=== PATIENT | male | born 1940 | race Caucasian/White ===

== ENCOUNTER 2021-05-22 19:43 | Emergency (ER) | payer MEDICARE, OTHER, SELFPAY ==
[2021-05-22 19:43] VITALS: BP 128/61; PULSE 65; RESP 16; TEMP 36.4; O2SAT 100; BMI 23.0
--- NOTE | 2021-05-22 19:58 | RAD_ITS ---
STUDY: XR Knee 3 Views 05/22/2021 9:03 PM REASON FOR EXAM: Male, 80 years old. PAIN TECHNIQUE: XR Knee 3 Views COMPARISON: None. FINDINGS: Normal visualized distal femur. Normal visualized proximal tibia and fibula. Normal proximal tibiofibular articulation. There is severe degenerative arthrosis of the medial femorotibial compartment with severe joint space narrowing. There is severe degenerative arthrosis of the lateral femorotibial compartment with severe joint space narrowing. There is severe degenerative arthrosis of the patellofemoral articulation. There is a soft tissue prominence in the suprapatellar region suggesting a small volume joint effusion. The soft tissue structures are unremarkable. RAD/Knee 3 Views IMPRESSION: Degenerative arthrosis. There is a soft tissue prominence in the suprapatellar region suggesting a small volume joint effusion. Electronically Signed: Conner Woodard MD at 21:04 EST ,
--- NOTE | 2021-05-22 19:58 | RAD_ITS ---
STUDY: XR Shoulder Min 2 Views REASON FOR EXAM: Male, 80 years old. PAIN TECHNIQUE: XR Shoulder Min 2 Views COMPARISON: None. FINDINGS: Normal glenohumeral articulation. There is degenerative arthrosis of the acromioclavicular joint without inferior osseous spur formation. Normal acromion. Normal humeral head and visualized proximal humerus. The soft tissue structures are unremarkable. Normal visualized pulmonary apex. RAD/Shoulder min 2 Views IMPRESSION: There are no acute findings of the shoulder. Electronically Signed: Conner Woodard MD at 21:04 EST Reading Location ID and State: [facility] / [place] , Service support ,
--- NOTE | 2021-05-22 20:12 | RAD_ITS ---
STUDY: XR Hand Min 3 Views REASON FOR EXAM: Male, 80 years old. PAIN TECHNIQUE: XR Hand Min 3 Views COMPARISON: None. FINDINGS: Normal radiocarpal articulation. Normal distal radioulnar joint. Normal visualized carpal bones. Normal carpal articulations Normal carpometacarpal articulation of the thumb. Normal second through fifth carpometacarpal joints. Normal metacarpi. There is degenerative arthrosis of the metacarpophalangeal (MCP) joints. There is degenerative arthrosis of the interphalangeal joint of the thumb with articular joint space narrowing. Normal proximal and distal phalanges of the thumb. There is degenerative arthrosis of the metacarpophalangeal (MCP) joints. There is diffuse articular joint space narrowing of the proximal and distal interphalangeal joints of the second through fifth fingers, but without erosive changes or periarticular soft tissue swelling. Normal phalanges of the second through fifth fingers. The soft tissue structures are unremarkable. RAD/Hand Min 3 Views IMPRESSION: Degenerative joint disease of the hand and wrist, as described above. Electronically Signed: Conner Woodard MD at 21:06 EST Reading Location ID and State: [facility] / [place] , Service support ,
--- NOTE | 2021-05-22 20:28 | CT_ITS ---
We are attempting to reach an attending provider to discuss findings. An addendum with communication details will be sent when the communication is complete. STUDY: CT BRAIN WITHOUT CONTRAST REASON FOR EXAM: Male, 80 years old. HEADACHE fall +loc TECHNIQUE: Transaxial CT imaging of the brain was performed without administration of intravenous contrast material. Individualized dose optimization techniques were used for this CT. COMPARISON: None FINDINGS: Normal calvarium. There is no underlying fracture. Soft tissue swelling of the left periorbital region. Normal size ventricles and extra-axial spaces for the patient''s age. Normal white matter tracts of the cerebral hemispheres. Normal basal ganglia and thalami. Normal brainstem. Normal cerebellum. There is frontal lobe subarachnoid and/or petechial hemorrhage. There are no findings of an acute ischemic infarction. There is mild maxillary sinus disease. Sphenoid sinus disease. There is mild ethmoid sinus disease. ASPECTS 10 CT/Brain/Head without Contrast IMPRESSION: There is frontal lobe subarachnoid and/or petechial hemorrhage. There is no underlying fracture. Soft tissue swelling of the left periorbital region. Sinus disease. Electronically Signed: Conner Woodard MD at 21:06 EST ,
[2021-05-22 21:24] VITALS: RESP 18
[2021-05-22] MEDS: Diphth,Pertuss(Acell),Tet Vac 0.5 ML Vial IM (22:00)
[2021-05-22 22:05] VITALS: RESP 20
--- NOTE | 2021-05-22 22:17 | EDS_ITS ---
HPI HPI - Fall History of Present Illness Chief Complaint: Fall Informant: patient and family Occured/Mechanism Occurred: Today Narrative: Unwitnessed fall Pain/Injury Location: Left shoulder, left hand, left knee, left frontal forehead Pain Location: head, face and upper extremity Quality of Pain: Aching Worsened by: Movement Relieved by: Nothing Associated Symptoms Associated Symptoms: Positive for Loss of consciousness (Unknown) and Amnesia; Negative for Parasthesias and Inability to ambulate Length of loss of consciousness: Unknown Narrative Narrative: Patient presents after an unwitnessed fall that occurred today. Family came home and saw that the patient was sitting at the kitchen table with a laceration to his left eyebrow and swelling in his left periorbital area. Patient does not remember any of the events around the fall. Patient complains of pain over the left side of his head, left shoulder, left hand, and left knee. Family does not know if there was a loss of consciousness. Family states patient probably fell outside and was able to come inside into the house on his own. [facility] Medical History (Updated 05/22/21 @ 22:[address] Eleazar Pierre DO) Type 2 diabetes mellitus Allergy/AdvReac Type Severity Reaction Status Date / Time No Known Allergies Allergy Verified 05/22/21 19:46 Surgical History (Updated 05/22/21 @ 22:[address] Eleazar Pierre DO) Hx of left knee surgery Social History Smoking Status: Never smoker ROS ROS ED Constitutional Constitutional ED: Denies chills or fever(s) Eyes Eyes: Denies blurry vision or change in vision ENT ENT ED: Denies rhinorrhea or sore throat Cardiovascular Cardiovascular: Denies chest pain or palpitations Respiratory/Chest Respiratory/Chest: Denies cough or dyspnea Gastrointestinal Gastrointestinal: Denies nausea or vomiting Genitourinary Genitourinary ED: Denies dysuria or hematuria Musculoskeletal Musculoskeletal: Denies back pain or neck pain Integumentary Denies abscess or rash Neurologic Neurologic: Denies headache(s) or weakness Allergic/Immunologic Allergic/Immunologic ED: Denies mouth swelling or urticaria EXAM Physical Exam Const Vital Signs: 05/22/21 19:43 05/22/21 20:48 05/22/21 21:24 Temperature 97.6 F L Temperature Source Temporal Pulse Rate 65 Respiratory Rate 16 18 Respiratory Effort Normal Respiratory Depth Normal Respiratory Pattern Normal Blood Pressure 128/61 H Blood Pressure Mean 83 Pulse Ox 100 Oxygen Delivery Method Room Air 05/22/21 22:05 Temperature Temperature Source Pulse Rate Respiratory Rate 20 H Respiratory Effort Respiratory Depth Respiratory Pattern Blood Pressure Blood Pressure Mean Pulse Ox Oxygen Delivery Method Positive well nourished and well developed General Appearance ED: well developed and NAD HEENT HEENT Narrative: There is edema and ecchymosis over the left upper eyelid and periorbital area. There is no bony crepitance or step-off. There is a 2.5 cm V-shaped laceration over the lateral aspect of the left eyebrow. There is moderate gapping of the wound margins. There is no foreign body. There is no active bleeding noted. Eyes PERRL and EOMs intact bilaterally Eyes Narrative: There is a subconjunctiva hemorrhage on the left lateral conjunctiva. Neck full ROM General: Negative for tenderness Chest Wall inspection of chest normal and palpation of chest normal Resp normal respiratory effort and clear to auscultation bilaterally Cardio regular rate and regular rhythm GI non-tender Palpation: soft Back/Spine Cervical Spine: Negative for cervical spine tenderness Thoracic Spine / Upper Back: Negative for thoracic spinal tenderness Extremity Extremity Narrative: There is tenderness to palpation of the left shoulder. There is no obvious deformity noted. There is no bony crepitance or step-off. Range of motion was limited in all motions of the left shoulder secondary to pain. There is a superficial abrasion over the left hand. There is no active bleeding. There is good range of motion of the left hand. There is minimal tenderness. There is no bony crepitance or step-off. There is no deformity. There is also tenderness over the left knee. There is a superficial abrasion over the anterior aspect of the left knee. There is no bleeding. Range of motion was slightly limited in all motions of the left knee secondary to pain. Pedal pulses are equal bilaterally. Sensation was intact to light touch bilaterally in upper and lower extremities. Strength is 5/5 bilaterally in the upper and lower extremities. Neuro oriented x3, CN's II-XII intact bilaterally, moves all extremities, no focal motor deficits and no sensory deficits noted Sensorium / Orientation: alert Psych mental status grossly normal MDM MDM MDM Narrative Medical decision making narrative: X-rays of the left shoulder were obtained. There are 4 views. On my interpretation, there is no acute fracture. There is no dislocation. There are some mild degenerative changes. Radiologist also interpreted the x-rays and agrees. X-rays of the left hand were obtained. There are 3 views. On my interpretation, there is no acute fracture. There is no dislocation. There is no soft tissue swelling. There are some degenerative changes noted. Radiologist also interpreted the x-rays and agrees. X-rays of the left knee were obtained. There are 3 views. On my interpretation, there is no acute fracture. There is no dislocation. There is some mild soft tissue swelling and a small joint effusion. There are some degenerative changes noted. Radiologist also interpreted the x-rays and agrees. CT scan of the brain was obtained. There is frontal lobe subarachnoid and/or petechial hemorrhage. There is no midline shift. There is no fracture noted. This was interpreted by the radiologist and reviewed by myself. The wound was cleaned and irrigated with copious amounts of normal saline. The wound was anesthetized with 1% plain lidocaine locally. The wound was closed with 3 simple interrupted #5-0 nylon sutures under sterile technique. Patient tolerated the procedure well. Bacitracin dressing was applied. CT scan of the cervical spine was ordered and is pending. Case was discussed with Dr. Gil at [facility]. He accepted the transfer the patient to the emergency department there. Patient became nauseated after CT scan of the cervical spine. Patient was given a dose of Zofran ODT here. Patient and family understood and were agreeable with the plan. All questions were answered. Radiography Diagnostic Testing: Clinical Impression(s) from Imaging Studies Knee X-Ray 05/22/21 19:58 IMPRESSION: Degenerative arthrosis. There is a soft tissue prominence in the suprapatellar region suggesting a small volume joint effusion. Electronically Signed: Conner Woodard MD at 21:04 EST , Shoulder X-Ray 05/22/21 19:58 IMPRESSION: There are no acute findings of the shoulder. Electronically Signed: Conner Woodard MD at 21:04 EST , Hand X-Ray 05/22/21 20:12 IMPRESSION: Degenerative joint disease of the hand and wrist, as described above. Electronically Signed: Conner Woodard MD at 21:06 EST , Brain CT 05/22/21 20:28 IMPRESSION: There is frontal lobe subarachnoid and/or petechial hemorrhage. There is no underlying fracture. Soft tissue swelling of the left periorbital region. Sinus disease. Electronically Signed: Conner Woodard MD at 21:06 EST , ADDENDUM: 05/22/212121 IMPRESSION: There is frontal lobe subarachnoid and/or petechial hemorrhage. There is no underlying fracture. Soft tissue swelling of the left periorbital region. Sinus disease. N.B. : The above Results were Read Back by Conner Woodard MD to Dr. Eleazar Pierre, DO, DO, and understanding confirmed on 05/22/2021 21:15:48 (ET). Electronically Signed: Conner Woodard MD at 21:06 EST , Discharge Plan Triage Chief Complaint: Fall ED Provider: Eleazar iPerre Dx/Rx/DC Orders Clinical Impression: Subarachnoid hemorrhage, Laceration of left eyebrow, Contusion of left shoulder, Contusion of left knee Primary Care Provider: Care Physician,No Primary Referrals: Care Physician,No Primary [Primary Care Provider] - Disposition Disposition: Acute Care Hospital Discharge Location: [facility]
--- NOTE | 2021-05-22 22:17 | CT_ITS ---
INDICATION: Injury/Pain EXAMINATION: CT CERVICAL SPINE - CT Spine Cervical W/O Contrast Injection TECHNIQUE: Helically acquired images were obtained of the cervical spine. 2D reformatted images were reviewed. A radiation dose optimization technique was used for this scan. IV Contrast dosage and agent: None. COMPARISON: None. FINDINGS: VERTEBRAE: No fracture or traumatic subluxation. No discrete lytic or blastic abnormality. Mild straightening of the normal cervical lordotic curvature. Normal craniocervical junction and cervicothoracic junction. DISCS and SPINAL CANAL: Significant multilevel degenerative facet and uncovertebral joint arthropathy with severe neural foraminal narrowing at C3-4 and C4-5 levels, on the right. 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 This does appear to result in mild central canal narrowing. NECK SOFT TISSUES: No prevertebral soft tissue swelling. There is no cervical adenopathy. LUNG APICES: Clear. CT/Spine Cervical without Contras IMPRESSION: No fracture or traumatic malalignment. Multilevel degenerative endplate, uncovertebral joint and facet joint arthropathy with severe neural foraminal narrowing C3-4 and C4-5 levels on the right. The posterior longitudinal ligament calcifications. This appears to result in mild central spinal canal narrowing. Electronically Signed: Geoff Antonio DO at 23:55 EST ,
[2021-05-22] MEDS: Lidocaine 1% (20 ml mdv) 20 ML Vial INFILT (22:45)
[2021-05-22] MEDS: Ondansetron ODT 4 MG Tablet PO (22:55)
--- NOTE | 2021-05-22 23:03 | ED.RN ---
Report given to Theresa at [facility]
[2021-05-22 23:05] VITALS: RESP 20
== END 2021-05-22 23:07 | disposition short-term general hospital (02) ==
PROVIDERS: Emergency Provider Emergency Medicine; Visit Provider Emergency Medicine
DX: S06.6X9A Traumatic subarachnoid hemorrhage with loss of consciousness of unspecified duration, initial encounter (principal); E11.9 Type 2 diabetes mellitus without complications; S01.112A Laceration without foreign body of left eyelid and periocular area, initial encounter; S80.02XA Contusion of left knee, initial encounter; S40.012A Contusion of left shoulder, initial encounter; W19.XXXA Unspecified fall, initial encounter; H11.32 Conjunctival hemorrhage, left eye; S80.212A Abrasion, left knee, initial encounter; Y93.9 Activity, unspecified; Y92.009 Unspecified place in unspecified non-institutional (private) residence as the place of occurrence of the external cause; Z23 Encounter for immunization
CPT/HCPCS: 12011; 70450; 72125; 73030; 73130; 73562; 90715; 99285; A4216

== ENCOUNTER → 2021-06-01 | Outpatient (REF) | payer SELFPAY ==
[2021-06-01 09:08] LABS: Absolute Neutrophil Count 3.4 X10^3/uL (2.0-7.7); Basophil# 0.05 X10^3/uL; Basophil% 0.8 % (0-1); Eosinophil# 0.21 X10^3/uL; Eosinophils% 3.3 % (0-5); Hematocrit 37.5 % (40-54); Hemoglobin 12.5 g/dL (13.0-16.5); Lymphocyte % 33.4 % (19-41); Mean Corp Hgb Conc 33.3 g/dL (32-36); Mean Corpuscular Hgb 31.6 pg (27.0-32.0); Mean Corpuscular Volume 94.7 fL (80-94); Mean Platelet Vol. 9.1 fl (6.2-12.0); Monocyte# 0.54 X10^3/uL; Monocyte% 8.6 % (0-10); NRBC Flagged by Analyzer 0 % (0-5); Neutrophil # 3.35 X10^3/uL (2.7-7.7); Neutrophil % 53.4 % (47-70); Platelet Count 282 K/mm3 (150-450); RBC Distribution Width CV 13.6 % (11.6-14.6); RBC Distribution Width SD 47.4 fl (35.1-43.9); Red Blood Count 3.96 M/mm3 (4.6-6.2); White Blood Count 6.3 K/mm3 (4.4-11.0)
[2021-06-01 09:47] LABS: Vitamin B12 638 pg/mL (211-911); Vitamin D,25 Hydroxy 42.8 ng/mL
[2021-06-01 09:53] LABS: Anion Gap 8 (5-15); BUN 14 mg/dL (7-18); BUN/Creat Ratio 14.4 RATIO (10-20); Calcium,Total 8.6 mg/dL (8.5-10.1); Chloride 102 mmol/L (98-107); Creatinine, Serum 0.97 mg/dL (0.70-1.30); EST Glomerular Filtration Rate 79 mL/min (>60); Est Glom Filt Rate - Afr Amer 95 mL/min (>60); Glucose 110 mg/dL (74-106); Magnesium 2.5 mg/dL (1.6-2.6); Potassium 4.2 mmol/L (3.5-5.1); Sodium Level 136 mmol/L (136-145); Thyroid Stim Hormone (TSH) 0.71 uIU/mL (0.358-3.74)
[2021-06-01 10:53] LABS: Hemoglobin A1c 5.7 % (3.8-5.6)
== END | disposition home or self-care (01) ==
LOC: OLS.SW1020 04:00
PROVIDERS: Referring Provider Internal Medicine; Visit Provider Internal Medicine
DX: E11.9 Type 2 diabetes mellitus without complications (principal)
CPT/HCPCS: 36415; 80048; 82306; 82607; 83036; 83735; 84443; 85025

== ENCOUNTER → 2021-06-08 | Outpatient (REF) | payer SELFPAY ==
[2021-06-08 08:00] LABS: Absolute Lymphocyte Count 1.76 X10^3/uL (0.83-4.51); Absolute Neutrophil Count 4.9 X10^3/uL (2.0-7.7); Basophil# 0.06 X10^3/uL; Basophil% 0.8 % (0-1); Eosinophil# 0.15 X10^3/uL; Hematocrit 37.2 % (40-54); Hemoglobin 12.9 g/dL (13.0-16.5); Lymphocyte # 1.76 X10^3/ul (0.83-4.51); Lymphocyte % 23.6 % (19-41); Mean Corp Hgb Conc 34.7 g/dL (32-36); Mean Corpuscular Hgb 31.6 pg (27.0-32.0); Mean Corpuscular Volume 91.2 fL (80-94); Mean Platelet Vol. 8.9 fl (6.2-12.0); Monocyte# 0.56 X10^3/uL; Monocyte% 7.5 % (0-10); NRBC Flagged by Analyzer 0 % (0-5); Neutrophil % 65.7 % (47-70); Platelet Count 305 K/mm3 (150-450); RBC Distribution Width CV 13.5 % (11.6-14.6); RBC Distribution Width SD 45.6 fl (35.1-43.9); Red Blood Count 4.08 M/mm3 (4.6-6.2); White Blood Count 7.5 K/mm3 (4.4-11.0)
[2021-06-08 08:12] LABS: Anion Gap 8 (5-15); BUN 13 mg/dL (7-18); BUN/Creat Ratio 16.2 RATIO (10-20); Calcium,Total 8.8 mg/dL (8.5-10.1); Chloride 97 mmol/L (98-107); EST Glomerular Filtration Rate 99 mL/min (>60); Est Glom Filt Rate - Afr Amer 119 mL/min (>60); Glucose 123 mg/dL (74-106); Magnesium 2.3 mg/dL (1.6-2.6); Potassium 3.9 mmol/L (3.5-5.1); Sodium Level 132 mmol/L (136-145)
== END | disposition home or self-care (01) ==
LOC: OLS.SW1020 04:00
PROVIDERS: Referring Provider Internal Medicine; Visit Provider Internal Medicine
DX: S02.82XD Fracture of other specified skull and facial bones, left side, subsequent encounter for fracture with routine healing (principal)
CPT/HCPCS: 36415; 80048; 83735; 85025

== ENCOUNTER 2022-01-17 17:17 | Inpatient (IN) | payer MEDICARE, OTHER, SELFPAY ==
--- NOTE | 2022-01-17 17:21 | CT_ITS ---
We are attempting to reach an attending provider to discuss findings. An addendum with communication details will be sent when the communication is complete. STUDY: CTA HEAD AND NECK WITH CONTRAST REASON FOR EXAM: Male, 81 years old. Neuro deficit. Acute stroke suspected. RADIATION DOSAGE (If Supplied By Facility): CTDIvol = ( 44.99 ) mGy, DLP = ( 1625.96 ) mGycm TECHNIQUE: CT angiography was performed with a multi-detector CT scanner. Data acquisition was obtained from the skull base through the vertex following intravenous administration of IV 100mL Isovue-370. MIP images were reconstructed from the axial data set. Post-processing of the angiographic images was performed, with multiplanar reformation and 3D reconstruction. Individualized dose optimization techniques were used for this CT. COMPARISON: CT, 01/17/2022. FINDINGS: Normal bilateral petrous carotid arteries. There is calcified plaque formation of the right cavernous carotid artery, without a cross-sectional luminal stenosis. There is calcified plaque formation of the left cavernous carotid artery, without a cross-sectional luminal stenosis. Normal right A1 segments of the anterior cerebral artery. Normal left A1 segments of the anterior cerebral artery. There is non-visualization of the anterior communicating artery (ACOM). Normal bilateral A2 segments of the anterior cerebral arteries. Normal M1 and M2 segments of the right middle cerebral artery with a normal M1 bifurcation. Normal M1 of the left cerebral artery. At the expected position of the bifurcation there is occlusion of the vessel. There is evidence of contrast seen in M2 segments suggesting a marked stenosis. Normal right posterior communicating artery (PCOM). Normal left posterior communicating artery (PCOM). Normal bilateral vertebral arteries. Normal basilar artery with a normal basilar bifurcation. The visualized bilateral superior cerebellar (SCA) arteries are normal. Normal bilateral P1, P2 and visualized P3 segments of the posterior cerebral arteries. There is no demonstrated aneurysm of the cahto of [place]. There is no demonstrated abnormality of the visualized brain. AORTIC ARCH: Minimal atherosclerotic changes of the aortic arch without dissection or aneurysm. Normal origins of the brachiocephalic, left common carotid, and left subclavian arteries. RIGHT CAROTID ARTERIES: Normal right common carotid artery (CCA). Minimal atherosclerotic changes at the carotid bifurcation without stenosis. Normal origin of the right internal carotid (ICA) artery without a hemodynamically significant stenosis. Normal visualized cervical portion of the right internal carotid artery. Normal origin of the right external carotid artery (ECA). LEFT CAROTID ARTERIES: Normal left common carotid artery (CCA). Normal left common carotid bulb. Normal origin of the left internal carotid (ICA) artery without a hemodynamically significant stenosis. Normal visualized cervical portion of the left internal carotid artery. Normal origin of the left external carotid artery (ECA). VERTEBRAL ARTERIES: Normal bilateral vertebral arteries. CT/STROKE CTA Head AND Neck W/Con IMPRESSION: 1. 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 Contrast is seen in M2 branches although these appear less evident on the right.. This may be the cause of the asymmetric low attenuation in the region of the left insular cortex noted on the prior head CT. 2. Otherwise normal intracranial vasculature. 3. Minimal atherosclerotic changes at the left carotid bifurcation without stenosis. 4. Normal right carotid artery and bilateral vertebral arteries. Electronically Signed: Alejo Salmeron DO at 17:51 EDT ,
--- NOTE | 2022-01-17 17:21 | EKG12_ITS ---
Test Reason : stroke Blood Pressure : / mmHG Vent. Rate : 096 BPM Atrial Rate : 096 BPM P-R Int : 152 ms QRS Dur : 096 ms QT Int : 376 ms P-R-T Axes : 003 004 038 degrees QTc Int : 475 ms Poor data quality, interpretation may be adversely affected Normal sinus rhythm Normal ECG Confirmed by JAMES MON, PHILIP ([id number]), technical writer and editor LAVELLE KELLER ([id number]) on 01/18/2022 9:36:32 AM Referred By: Mu Confirmed By:PHILIP RAMIREZ MD
--- NOTE | 2022-01-17 17:21 | CT_ITS ---
EXAMINATION : Head CT w/out contrast HISTORY : Neuro deficit, acute, stroke suspected COMPARISON : None. TECHNIQUE : Multiple contiguous axial images were obtained from the skull base to the vertex without intravenous contrast. A radiation dose optimization technique was used for this scan. FINDINGS : There is no evidence for acute intracranial hemorrhage, mass effect, or midline shift. There is no extra-axial fluid collection. There are periventricular white matter changes consistent with chronic microvascular ischemic disease. There is sulcal widening and ventricular enlargement consistent with cerebral atrophy. Ill-defined hypodense area involving the anterior aspect of the right frontal lobe. 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 The skull base and calvarium are unremarkable. The orbits are unremarkable. The paranasal sinuses are clear. The mastoid air cells are well-aerated. The soft tissues are unremarkable. 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 No hemorrhage. 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 Chronic involutional and ischemic changes of the brain. N.B. : The above Results were Read Back by Dave Jimenez MD to Suha Dobbins MD, and understanding confirmed on 01/17/2022 17:32:16 (ET). Electronically Signed: Dave Jimenez MD at 17:28 EDT ,
[2022-01-17 17:24] VITALS: BP 158/87; PULSE 94; RESP 20; TEMP 36.6; O2SAT 97
[2022-01-17 17:37] LABS: Absolute Lymphocyte Count 1.09 X10^3/uL (0.83-4.51); Absolute Neutrophil Count 9.8 X10^3/uL (2.0-7.7); Basophil# 0.05 X10^3/uL; Basophil% 0.4 % (0-1); Eosinophil# 0.17 X10^3/uL; Eosinophils% 1.4 % (0-5); Hematocrit 43.7 % (40-54); Hemoglobin 14.3 g/dL (13.0-16.5); Lymphocyte # 1.09 X10^3/ul (0.83-4.51); Lymphocyte % 9.2 % (19-41); Mean Corp Hgb Conc 32.7 g/dL (32-36); Mean Corpuscular Hgb 29.9 pg (27.0-32.0); Mean Corpuscular Volume 91.4 fL (80-94); Mean Platelet Vol. 8.7 fl (6.2-12.0); Monocyte% 5.9 % (0-10); NRBC Flagged by Analyzer 0 % (0-5); Neutrophil # 9.76 X10^3/uL (2.7-7.7); Neutrophil % 82.6 % (47-70); Platelet Count 171 K/mm3 (150-450); RBC Distribution Width CV 13.4 % (11.6-14.6); RBC Distribution Width SD 45.8 fl (35.1-43.9); Red Blood Count 4.78 M/mm3 (4.6-6.2); White Blood Count 11.8 K/mm3 (4.4-11.0)
[2022-01-17 17:42] LABS: International Normalized Ratio 1.3; Prothrombin Time (Protime)PT. 15.4 SECONDS (11.7-14.9)
[2022-01-17 17:43] LABS: Partial Thromboplast Time 36.6 Seconds (24.1-36.2)
[2022-01-17 17:45] VITALS: BP 158/87; PULSE 94; RESP 20; TEMP 36.6; O2SAT 97
[2022-01-17 17:51] VITALS: BP 144/73; PULSE 84; RESP 19; O2SAT 98
[2022-01-17 17:53] VITALS: BMI 28.6
--- NOTE | 2022-01-17 18:00 | RAD_ITS ---
STUDY: X-RAY CHEST REASON FOR EXAM: Male, 81 years old. Neuro deficit, acute, stroke suspected TECHNIQUE: Single AP portable view of the chest. COMPARISON: None. FINDINGS: The lungs are clear and expanded. There is no demonstrated pleural abnormality. Normal size heart. Enlargement of the hilum of the left lung worrisome for left hilar mass or lymphadenopathy. Correlation with CT the chest with contrast is recommended. Normal visualized pulmonary arteries. Normal visualized aortic arch and descending thoracic aorta. Normal visualized thoracic spine. Normal visualized ribs, clavicles, and shoulders. There is no demonstrated abnormality of the visualized soft tissue structures of the upper abdomen. RAD/Chest 1 View IMPRESSION: Suspect left hilar mass or lymphadenopathy. Correlation with CT the chest with contrast is recommended. Electronically Signed: Juve Estes MD at 19:12 EDT ,
[2022-01-17 18:10] LABS: Anion Gap 9 (5-15); BUN 14 mg/dL (7-18); BUN/Creat Ratio 16.8 RATIO (10-20); Chloride 103 mmol/L (98-107); Creatinine, Serum 0.83 mg/dL (0.70-1.30); EST Glomerular Filtration Rate 94 mL/min (>60); Est Glom Filt Rate - Afr Amer 114 mL/min (>60); Estimated Creatinine Clearance 76.61 ml/min; Glucose 145 mg/dL (74-106); Potassium 3.9 mmol/L (3.5-5.1); Sodium Level 139 mmol/L (136-145); Troponin-I HS 321 pg/mL (3.0-78.0)
--- NOTE | 2022-01-17 18:14 | EX.ED.DYSGE1 ---
HPI History of Present Illness Chief Complaint: Neuro S/Sx Informant: family and EMS Narrative Narrative: 81-year-old male presenting after being found by family with right-sided weakness, right facial droop and difficulty with speech. Last known well 2229 last night. History of previous brain hemorrhage in May after fall. Blood sugar per EMS 145. Pre-hospital stroke alert was activated. Patient was taken directly to CT scan on arrival. Prior similar symptoms: No Recent Illness/Hospitalization: No PFSH PFSH Medical History Brain bleed Type 2 diabetes mellitus Home Medications glipizide 10 mg tablet, extended release 24 hr 10 mg PO DAILY 01/17/22 [History Last Taken Unknown] metformin 500 mg tablet 500 mg PO TIDCM 01/17/22 [History Last Taken Unknown] simvastatin 80 mg tablet 80 mg PO QHS 01/17/22 [History Last Taken Unknown] Allergy/AdvReac Type Severity Reaction Status Date / Time No Known Allergies Allergy Verified 05/22/21 19:46 Surgical History Hx of left knee surgery Social History Smoking Status: Never smoker ROS ROS ED Review of Systems ROS Unobtainable: due to mental status Constitutional Constitutional ED: Denies fever(s) EXAM Physical Exam Const Vital Signs: 01/17/22 17:24 01/17/22 17:44 01/17/22 17:45 Temperature 97.9 F 97.9 F Temperature Source Temporal Temporal Pulse Rate 94 94 Respiratory Rate 20 H 20 H Blood Pressure 158/87 H 158/87 H Blood Pressure Mean 110 110 Pulse Ox 97 97 Oxygen Delivery Method Room Air Room Air Room Air 01/17/22 17:51 Temperature Temperature Source Pulse Rate 84 Respiratory Rate 19 H Blood Pressure 144/73 H Blood Pressure Mean 96 Pulse Ox 98 Oxygen Delivery Method Room Air Positive well nourished and well developed General Appearance ED: well developed HEENT Reports normocephalic and head/scalp atraumatic HEENT Narrative: right facial droop Eyes PERRL and EOMs intact bilaterally Neck supple General: Negative for tenderness Chest Wall inspection of chest normal Resp normal respiratory effort and clear to auscultation bilaterally Cardio regular rate and regular rhythm GI non-tender and non-distended Palpation: soft; Negative for guarding or rebound tenderness present no CVA tenderness Extremity normal to inspection Neuro Neuro Narrative: Initial NIH 25; right sided weakness, right facial droop, aphasia Sensorium / Orientation: alert Psych mental status grossly normal Skin no rashes or lesions noted MDM MDM MDM Narrative Medical decision making narrative: Patient is not a tPA candidate due to last known well 2229. [facility] neurology was consulted and discussed findings with family. CTA does show concern for LVO or partial occlusion. Transfer to [facility] with attempt at clot retrieval was discussed with the family. They do not feel patient would want this intervention. They feel he would prefer comfort measures only. Discussed further wishes with family. He would not want to be on a ventilator, have CPR, or other heroic measures. Patient will be admitted here with palliative care consult. Discussed with hospitalist for admission. Lab Data Attestation: I reviewed the patient's lab results. Labs: Laboratory Results - last 24 hr 01/17/22 01/17/22 01/17/22 17:25 17:25 17:25 WBC 11.8 H RBC 4.78 Hgb 14.3 Hct 43.7 MCV 91.4 MCH 29.9 MCHC 32.7 RDW Std Deviation 45.8 H RDW Coeff of Kalin 13.4 Plt Count 171 MPV 8.7 Immature Gran % (Auto) 0.500 Neut % (Auto) 82.6 H Lymph % (Auto) 9.2 L [place] % (Auto) 5.9 Eos % (Auto) 1.4 Baso % (Auto) 0.4 Absolute Neuts (auto) 9.8 H Absolute Lymphs (auto) 1.09 Nucleated RBC % 0 PT 15.4 H INR 1.3 APTT 36.6 H Sodium 139 Potassium 3.9 Chloride 103 Carbon Dioxide 27.0 Anion Gap 9 BUN 14 Creatinine 0.83 Estim Creat Clear Calc 76.61 Est GFR (MDRD) Af Amer 114 Est GFR (MDRD) Non-Af 94 BUN/Creatinine Ratio 16.8 Glucose 145 H Calcium 10.0 Troponin I High Sens 321 H* Radiography Diagnostic Testing: Clinical Impression(s) from Imaging Studies Brain CT 01/17/22 17:21 IMPRESSION: Subacute infarct involving the right anterior frontal lobe in ANNA MARIE territory. No hemorrhage. 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 Chronic involutional and ischemic changes of the brain. N.B. : The above Results were Read Back by Dave Jimenez MD to Suha Dobbins MD, and understanding confirmed on 01/17/2022 17:32:16 (ET). Electronically Signed: Dave Jimenez MD at 17:28 EDT , ADDENDUM: 01/17/22 1740 IMPRESSION: Subacute infarct involving the right anterior frontal lobe in ANNA MARIE territory. No hemorrhage. 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 Chronic involutional and ischemic changes of the brain. N.B. : The above Results were Read Back by Dave Jimenez MD to Suha Dobbins MD, and understanding confirmed on 01/17/2022 17:32:16 (ET). Electronically Signed: Dave Jimenez MD at 17:28 EDT , Head/Neck CTA 01/17/22 17:21 IMPRESSION: 1. 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 Contrast is seen in M2 branches although these appear less evident on the right.. This may be the cause of the asymmetric low attenuation in the region of the left insular cortex noted on the prior head CT. 2. Otherwise normal intracranial vasculature. 3. Minimal atherosclerotic changes at the left carotid bifurcation without stenosis. 4. Normal right carotid artery and bilateral vertebral arteries. Electronically Signed: Alejo Salmeron DO at 17:51 EDT , ADDENDUM: 01/17/22 1803 IMPRESSION: 1. 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 Contrast is seen in M2 branches although these appear less evident on the right.. This may be the cause of the asymmetric low attenuation in the region of the left insular cortex noted on the prior head CT. 2. Otherwise normal intracranial vasculature. 3. Minimal atherosclerotic changes at the left carotid bifurcation without stenosis. 4. Normal right carotid artery and bilateral vertebral arteries. N.B. : The above Results were Read Back by Alejo Salmeron DO to Suha Allen MD, and understanding confirmed on 01/17/2022 17:56:37 (ET). Electronically Signed: Alejo Salmeron DO at 17:51 EDT Reading Location ID and State: [address] [place] [address] Tel [phone], Service support , Discharge Plan Triage Chief Complaint: Neuro S/Sx ED Provider: Suha Dobbins Dx/Rx/DC Orders Clinical Impression: Acute ischemic left MCA stroke Prescriptions: No Action metformin 500 mg tablet 500 mg PO TIDCM glipizide 10 mg tablet extended release 24hr 10 mg PO DAILY simvastatin 80 mg tablet 80 mg PO QHS Primary Care Provider: Care Physician,No Primary Referrals: Care Physician,No Primary [Primary Care Provider] - Disposition Disposition: Acute Care Hospital [facility]
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
[2022-01-17 18:56] VITALS: BP 151/76; PULSE 86; RESP 25; TEMP 37; O2SAT 97
[2022-01-17 19:25] VITALS: BP 137/83; PULSE 91; RESP 22; O2SAT 97
[2022-01-17 19:42] VITALS: BMI 28.0
[2022-01-17 20:01] VITALS: BP 141/79; PULSE 96; RESP 22; TEMP 36.9; O2SAT 96
[2022-01-17] MEDS: Nystatin Powder 15gm Bottle 1 APPLIC TOPICAL (23:56)
[2022-01-18] MEDS: morphine (oral solution) 10MG/0.5ML Syringe 5 MG SL/PO ×2 (06:16→13:45)
[2022-01-18 08:14] VITALS: BP 136/64; PULSE 99; RESP 28; TEMP 37.6; O2SAT 93
[2022-01-18] MEDS: Nystatin Powder 15gm Bottle 1 APPLIC TOPICAL (08:20)
[2022-01-18 08:53] VITALS: O2SAT 93
--- NOTE | 2022-01-18 09:10 | CASEMGMT ---
EFE received report that patient's family would like patient to go Hospice. SW was also informed that family would like patient to go to a fdc on Hospice. EFE called patient's daughter Adelina. Adelina confirmed she would like to talk with [facility] and she would like patient to go to a fdc on Hospice. EFE explained that patient would have to pay room and board at the SNF and insurance would pay for the Hospice care. Depending on which facility she picks the cost would be around $250 or more a day. EFE let Adelina know that SW will make the referral and someone from Hospice will call her to arrange an appointment. EFE called [facility] and made referral. SW also faxed information. EFE also called Genia at [facility] and made her aware of referral. Neida Weir ASSOCIATE DRAFTER TIMA
--- NOTE | 2022-01-18 09:45 | CASEMGMT ---
EFE received a call from Genia at Hospice and Haley will be meeting with family at 10:30a. EFE notified ore charger and RN. Neida Weir COMPUTATIONAL BIOLOGIST PARTS ROOM ASSISTANT
--- NOTE | 2022-01-18 10:30 | CASEMGMT ---
Krystal from Hospice is here to talk with family. Krystal said family signed papers and would like patient evaluated for the inpatient unit. Nelly from Hospice is here to evaluate patient for the inpatient unit. Patient was accepted in the inpatient Hospice unit. Hospice is sending their mobile unit to crop picker patient. Physician is aware. SW faxed d/c instructions and DNR to Hospice. Plan: [facility] Inpatient Hospice Unit. Hospice's mobile unit transported patient. Neida Weir CALENDER WIND UP HELPERMary ALFRED
[2022-01-18 10:35] VITALS: TEMP 37.8
--- NOTE | 2022-01-18 11:39 | DS.PCM_ITS ---
Providers Date of Admission: 01/17/22 Date of Discharge: 01/18/22 Primary Care Physician: [facility] Consultations 01/17/22 19:42 Consult: Hospice / Palliative Care Routine Consulting Provider: [facility] Reason for Consult: [facility] interest Hospice at [facility], 01/17/22 called from ED EMERGENT Consult: No MD Notified: Yes Date Notified: 01/18/22 Time Notified: 11:06 Method of Notification: Verbal Reason For Visit: ACUTE CVA, NSTEMI, HOSPICE TRANSITION Diagnosis Discharge Diagnosis (1) Acute ischemic left MCA stroke: Status: Acute Code(s): I63.512 - Cerebral infarction due to unspecified occlusion or stenosis of left middle cerebral artery (2) NSTEMI, initial episode of care: Status: Acute Code(s): I21.4 - Non-ST elevation (NSTEMI) myocardial infarction Medications at Discharge Home Medications glipizide 10 mg tablet, extended release 24 hr 10 mg PO DAILY diabetes 01/17/22 metformin 500 mg tablet 500 mg PO TIDCM diabetes 01/17/22 simvastatin 80 mg tablet 80 mg PO QHS cholesterol 01/17/22 Hospital Course Operations None Procedures None Summary of Care Provided Minutes Spent on Discharge: 35 Hospital Course: 81-year-old male with past medical history of type II DM, hypertension, osteoarthritis, who lives with his daughter and son. Patient's functional status has been declining for the past 2 weeks. Patient was brought into the emergency room with right-sided hemiplegia, inability to speak or follow commands. Patient has history of frontal lobe subarachnoid and petechial hemorrhage secondary to a fall in May 2021. He did not have any residual neurological defects. Patient was found this morning sitting in a chair, partially undressed, fixated supposedly unreliable, unable to move or move his right side. Patient was last known well at 20:00 hours. They had him walk to the bathroom at 2230HRS. His initial NIHSS score was 24. Patient's vitals were stable. Admitting blood work was also unremarkable. CT of the head showed subacute infarct involving the right anterior frontal lobe in the ANNA MARIE territory. There was an old lacunar infarct in the right centrum semiovale. There was evidence of chronic ambulatory and ischemic changes of the brain. CTA of the head and neck showed partial occlusion or severe stenosis of the distal M1 segment of the left middle cerebral arteries. 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 He was offered the option of a thrombectomy. Family however declined saying that the quality of his life has been poor and worsening over time especially the week prior. His family wanted to concentrate on comfort and stated that he would not want any aggressive care. Hospice was consulted. Overnight, patient did show evidence of shortness of breath. He was given Roxanol. At the time of exam in the morning, patient was lethargic but opens his eyes on sternal rub. He was also febrile. Hospitalist did meet shortly after with the family and was accepted to the inpatient hospice unit. Physical Exam Narrative Physical exam: General: Lethargic, comfortable, febrile HEENT: Atraumatic Oral: Moist Mucosa Neck: Supple Lungs: Diminished to auscultation Cardiovascular: HS I+II, regular, no murmurs Abdomen: Bowel Sounds Present, Soft, Non Tender Extremities: Trace bilateral edema, evidence of lower extremity venous stasis dermatitis Skin: No rashes, No breakdown Neurological: Grossly intact Psych/Mental Status: Appropriate Weight / BMI Weight Weight: 93.6 kg Body Mass Index (BMI) 28.0 ABG / Lab / Microbiology Data Result Diagrams: 01/17/22 17:25 01/17/22 17:25 Laboratory: Laboratory Results - last 24 hr 01/17/22 17:25: WBC 11.8 H, RBC 4.78, Hgb 14.3, Hct 43.7, MCV 91.4, MCH 29.9, MCHC 32.7, RDW Std Deviation 45.8 H, RDW Coeff of Kalin 13.4, Plt Count 171, MPV 8.7, Immature Gran % (Auto) 0.500, Neut % (Auto) 82.6 H, Lymph % (Auto) 9.2 L, [place] % (Auto) 5.9, Eos % (Auto) 1.4, Baso % (Auto) 0.4, Absolute Neuts (auto) 9.8 H, Absolute Lymphs (auto) 1.09, Nucleated RBC % 0 01/17/22 17:25: PT 15.4 H, INR 1.3, APTT 36.6 H 01/17/22 17:25: Sodium 139, Potassium 3.9, Chloride 103, Carbon Dioxide 27.0, Anion Gap 9, BUN 14, Creatinine 0.83, Estim Creat Clear Calc 76.61, Est GFR (MDRD) Af Amer 114, Est GFR (MDRD) Non-Af 94, BUN/Creatinine Ratio 16.8, Glucose 145 H, Calcium 10.0, Troponin I High Sens 321 H* Radiography Diagnostic Testing: Radiology Impression Brain CT 01/17/22 17:21 IMPRESSION: Subacute infarct involving the right anterior frontal lobe in ANNA MARIE territory. No hemorrhage. 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 Chronic involutional and ischemic changes of the brain. N.B. : The above Results were Read Back by Dave Jimenez MD to Suha Dobbins MD, and understanding confirmed on 01/17/2022 17:32:16 (ET). Electronically Signed: Dave Jimneez MD at 17:28 EDT , ADDENDUM: 01/17/22 1740 IMPRESSION: Subacute infarct involving the right anterior frontal lobe in ANNA MARIE territory. No hemorrhage. 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 Chronic involutional and ischemic changes of the brain. N.B. : The above Results were Read Back by Dave Jimenez MD to Suha Dobbins MD, and understanding confirmed on 01/17/2022 17:32:16 (ET). Electronically Signed: Dave Jimenez MD at 17:28 EDT , Head/Neck CTA 01/17/22 17:21 IMPRESSION: 1. 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 Contrast is seen in M2 branches although these appear less evident on the right.. This may be the cause of the asymmetric low attenuation in the region of the left insular cortex noted on the prior head CT. 2. Otherwise normal intracranial vasculature. 3. Minimal atherosclerotic changes at the left carotid bifurcation without stenosis. 4. Normal right carotid artery and bilateral vertebral arteries. Electronically Signed: Alejo Salmeron DO at 17:51 EDT Reading Location ID and State: [facility] / [place] Tel [phone], Service support , ADDENDUM: 01/17/22 1803 IMPRESSION: 1. 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 Contrast is seen in M2 branches although these appear less evident on the right.. This may be the cause of the asymmetric low attenuation in the region of the left insular cortex noted on the prior head CT. 2. Otherwise normal intracranial vasculature. 3. Minimal atherosclerotic changes at the left carotid bifurcation without stenosis. 4. Normal right carotid artery and bilateral vertebral arteries. N.B. : The above Results were Read Back by Alejo Salmeron DO to Suha Allen MD, and understanding confirmed on 01/17/2022 17:56:37 (ET). Electronically Signed: Alejo Salmeron DO at 17:51 EDT Reading Location ID and State: [address] [place] [address] Tel [phone], Service support , Chest X-Ray 01/17/22 18:00 IMPRESSION: Suspect left hilar mass or lymphadenopathy. Correlation with CT the chest with contrast is recommended. Electronically Signed: Juve Estes MD at 19:12 EDT , D/C Instructions Discharge Diet: No restrictions Meaningful Use Info Meaningful Use Diagnoses (Choose all that apply): None applicable Discharge Plan Admission Admit Date/Time: 01/17/22 18:58 Primary Reason for Your Visit: Acute CVA Attending Provider: Pebbles Navarro Primary Care Provider: Care Physician,No Primary Consulting Providers: Christen Bo ; Klarissa Saleh ; Austin Horowitz ; Sallie Butcher ; Gege Trevino ; Jailyn Pineda PEDIATRIC OCCUPATIONAL THERAPIST Discharge Orders/Prescriptions Prescriptions: No Action metformin 500 mg tablet 500 mg PO TIDCM glipizide 10 mg tablet extended release 24hr 10 mg PO DAILY simvastatin 80 mg tablet 80 mg PO QHS Referrals / Follow Up: Care Physician,No Primary [Primary Care Provider] - Disposition Disposition (needs filled in before D/C Order can be placed): Hospice in Medical Facility Charges/Coding Visit Charges Inpatient E&M: 32106 Disch Hosp
--- NOTE | 2022-01-18 11:39 | PCM.DC ---
Discharge Instructions Diet Discharge Diet: No restrictions Activity Discharge Activity: Return to Normal Activity Follow Up Care Test Results: Test results from this visit will be discussed in further detail at your follow-up appointment, if applicable. Discharge Plan Admission Admit Date/Time: 01/17/22 18:58 Primary Reason for Your Visit: Acute CVA Attending Provider: Pebbles Navarro Primary Care Provider: Care Physician,No Primary Consulting Providers: Christen Bo ; Klarissa Saleh ; Austin Horowitz ; Sallie Butcher ; Gege Trevino ; Jailyn Pineda [employer]OR Discharge Orders/Prescriptions Prescriptions: No Action metformin 500 mg tablet 500 mg PO TIDCM glipizide 10 mg tablet extended release 24hr 10 mg PO DAILY simvastatin 80 mg tablet 80 mg PO QHS Referrals / Follow Up: Care Physician,No Primary [Primary Care Provider] - Disposition Disposition (needs filled in before D/C Order can be placed): Hospice in Medical Facility
--- NOTE | 2022-01-18 11:59 | PHA.DC.MR ---
Pharmacy Service has performed discharge medication reconciliation for this patient. The patient's discharge medication list was reviewed for discrepancies and discrepancies were resolved. Home Medications glipizide 10 mg tablet, extended release 24 hr 10 mg PO DAILY diabetes 01/17/22 metformin 500 mg tablet 500 mg PO TIDCM diabetes 01/17/22 simvastatin 80 mg tablet 80 mg PO QHS cholesterol 01/17/22
== END 2022-01-18 14:18 | disposition hospice, inpatient (51) | DRG 64 ==
LOC: ED 19:03 → PCU 19:09
PROVIDERS: Admitting Provider Family Medicine; Emergency Provider Emergency Medicine; Visit Provider Internal Medicine
DX: I63.312 Cerebral infarction due to thrombosis of left middle cerebral artery (principal); I21.A1 Myocardial infarction type 2; G81.91 Hemiplegia, unspecified affecting right dominant side; E11.9 Type 2 diabetes mellitus without complications; R47.01 Aphasia; E78.5 Hyperlipidemia, unspecified; I10 Essential (primary) hypertension; M19.90 Unspecified osteoarthritis, unspecified site; R29.810 Facial weakness; R29.725 NIHSS score 25; Z66 Do not resuscitate; Z79.84 Long term (current) use of oral hypoglycemic drugs; Z87.891 Personal history of nicotine dependence
CPT/HCPCS: 70450; 70496; 70498; 71045; 80048; 84484; 85025; 85610; 85730; 93005; 99285; Q9967